=== PATIENT | male | born 1980 | race Two or more races ===

== ENCOUNTER → 2018-10-27 | Outpatient (CLI) | payer BC, OTHER | END | disposition home or self-care (01) | LOC: CFH 14:43 | PROVIDERS: ATTEND Nurse Practitioner Primary Care | DX: S82.115A Nondisplaced fracture of left tibial spine, initial encounter for closed fracture (principal); M25.462 Effusion, left knee; X58.XXXA Exposure to other specified factors, initial encounter; Y93.89 Activity, other specified; Y92.89 Other specified places as the place of occurrence of the external cause; Y99.8 Other external cause status ==